=== PATIENT | female | born 1945 | race Caucasian/White ===

== ENCOUNTER 2018-01-13 09:32 | Observation (INO) ==
[2018-01-13] MEDS ORDERED: ACETAMINOPHEN 325 MG TABLET PO ONE (09:57)
[2018-01-13] MEDS ORDERED: ASPIRIN CHEW 81 MG TABLET PO STA (09:57)
[2018-01-13] MEDS ORDERED: NITROGLYCERIN SL 0.4 MG TABLET SL STA (09:57)
[2018-01-13] MEDS ORDERED: ASPIRIN EC 325 MG TABLET PO STA (10:08)
[2018-01-13 10:16] LABS: Basophils # 0.1 10*3/uL (0.0-0.2); Basophils % 0.4 % (0.0-0.8); Eosinophils # 0.7 10*3/uL (0.0-0.87); Eosinophils % 6.3 % (0.00-10.9); Hematocrit 40.9 VOL% (35.7-47.0); Immature Granulocytes % 0.6 %; Immature Granulocytes Absolute 0.07 #; Lymphocytes # 1.7 10*3/uL (1.4-4.0); Lymphocytes % 14.6 % (21.3-54.2); Mean Corpuscular HGB Conc 34.2 GM/DL (32-36); Mean Corpuscular Hemoglobin 29 PG (27-34); Mean Corpuscular Volume 85.7 FL (87-102); Mean Platelet Volume 11.3 FL (9.6-12.0); Monocytes % 8.7 % (1.7-12.7); Neutrophils # 8.2 10*3/uL (1.4-7.4); Neutrophils % 69.4 % (38.7-73.9); Platelet Count 295 T/CUMM (130-400); Red Blood Count 4.77 MC/CUMM (3.8-5.5); Red Cell Distribution Width 13.4 % (9.3-17.3); White Blood Count 11.8 T/CUMM (4-12)
[2018-01-13 10:30] LABS: PT Patient Result 10.3 SECS; Partial Thromboplastin Time 30.6 SECS (0-40)
[2018-01-13 10:44] LABS: Albumin 3.9 G/DL (3.4-5.0); Bilirubin,Total 0.5 MG/DL (0.2-1.0); Calcium 9.5 MG/DL (8.5-10.1); Osmolality,Calculated 278.5 MOS/KG (273-304)
[2018-01-13 11:13] LABS: Apearance,Urine CLEAR (Clear); Bilirubin,Urine Negative (Negative); Blood, Urine Moderate mg/dL (Negative); Glucose,Urine (UA) Negative (Negative); Ketones,Urine Negative (Negative); Mucus,Urine Occasional /LPF (Occasional); Nitrite,Urine Negative (Negative); Protein,Urine Negative; RBC,Urine 3 /HPF (0-4); Squamous Epithelial Cell,Urine Occasional /HPF (0-10); Urine Color Yellow (Yellow); Urine Specific Gravity 1.011 (1.001-1.035); Urine Urobilinogen < 2.0 EU/DL (0.2-1.0); WBC,Urine 3 /HPF (0-6)
[2018-01-13] MEDS ORDERED: MAGNESIUM SULF RIDER 2 GM in PREMIX 1 EACH IV PRN ×2 (12:32→12:43)
[2018-01-13] MEDS ORDERED: ALUM/MAG/SIMETH/LIDO VISC 1:1 30 ML BOTTLE PO PRN (12:32)
[2018-01-13] MEDS ORDERED: ONDANSETRON 4 MG/2 ML VIAL IV PRN (12:32)
[2018-01-13] MEDS ORDERED: MAGNESIUM SULF RIDER 4 GM in PREMIX 1 EACH IV PRN ×2 (12:32→12:43)
[2018-01-13] MEDS ORDERED: POTASSIUM CHLORIDE RIDER 10 MEQ in PREMIX 1 EACH IV PRN (12:43)
[2018-01-13 13:11] LABS: Risk Ratio 6.16; VLDL CHOLESTEROL 64.8 MG/DL
[2018-01-13] MEDS: HEPARIN 5,000 UNIT/1 ML VIAL SUBCUT SCH ×2 (14:03→21:59)
[2018-01-13] MEDS: hydroCHLOROthiazide 25 MG TABLET PO SCH (14:03)
[2018-01-13] MEDS: VALSARTAN 160 MG TABLET PO SCH ×2 (14:03→21:58)
[2018-01-13] MEDS: ACETAMINOPHEN 325 MG TABLET PO SCH ×2 (14:05→21:58)
[2018-01-13] MEDS: POTASSIUM CHLORIDE 20 MEQ/15 ML UDCUP PER TUBE PRN ×4 (14:50→21:59)
[2018-01-13] MEDS ORDERED: KETOROLAC 30 MG/1 ML VIAL IV ONE (15:19)
[2018-01-13] MEDS: LOVASTATIN 20 MG TABLET PO SCH (16:50)
[2018-01-13] MEDS: CARVEDILOL 3.125 MG TABLET PO SCH (21:59)
[2018-01-13] MEDS: ANASTROZOLE 1 MG TABLET PO SCH (22:09)
[2018-01-14 04:26] LABS: Basophils # 0.1 10*3/uL (0.0-0.2); Basophils % 0.7 % (0.0-0.8); Eosinophils # 0.9 10*3/uL (0.0-0.87); Eosinophils % 9.4 % (0.00-10.9); Hematocrit 37.1 VOL% (35.7-47.0); Hemoglobin 12.8 GM/DL (12.0-16.0); Immature Granulocytes % 0.3 %; Immature Granulocytes Absolute 0.03 #; Lymphocytes % 21.3 % (21.3-54.2); Mean Corpuscular HGB Conc 34.5 GM/DL (32-36); Mean Corpuscular Hemoglobin 30 PG (27-34); Mean Corpuscular Volume 85.7 FL (87-102); Mean Platelet Volume 11.4 FL (9.6-12.0); Monocytes % 10.4 % (1.7-12.7); Neutrophils # 5.5 10*3/uL (1.4-7.4); Neutrophils % 57.9 % (38.7-73.9); Platelet Count 260 T/CUMM (130-400); Red Blood Count 4.33 MC/CUMM (3.8-5.5); Red Cell Distribution Width 13.6 % (9.3-17.3); White Blood Count 9.5 T/CUMM (4-12)
[2018-01-14 05:04] LABS: Albumin 3.4 G/DL (3.4-5.0); Bilirubin,Total 0.7 MG/DL (0.2-1.0); Calcium 9.4 MG/DL (8.5-10.1); Osmolality,Calculated 284.3 MOS/KG (273-304); Total Protein 6.8 G/DL (6.4-8.3)
[2018-01-14] MEDS: HEPARIN 5,000 UNIT/1 ML VIAL SUBCUT SCH ×3 (07:33→20:11)
[2018-01-14] MEDS: PANTOPRAZOLE 40 MG TABLET PO SCH (08:41)
[2018-01-14] MEDS: hydroCHLOROthiazide 25 MG TABLET PO SCH (08:41)
[2018-01-14] MEDS: VALSARTAN 160 MG TABLET PO SCH ×2 (08:41→20:11)
[2018-01-14] MEDS: ACETAMINOPHEN 325 MG TABLET PO SCH ×2 (08:42→14:59)
[2018-01-14] MEDS: CARVEDILOL 3.125 MG TABLET PO SCH ×2 (08:42→20:11)
[2018-01-14] MEDS: MELOXICAM 7.5 MG TABLET PO SCH (08:43)
[2018-01-14] MEDS ORDERED: KETOROLAC 15 MG/1 ML VIAL IV PRN (10:15)
[2018-01-14] MEDS: LOVASTATIN 20 MG TABLET PO SCH (16:52)
[2018-01-14] MEDS: ANASTROZOLE 1 MG TABLET PO SCH (20:11)
[2018-01-15] MEDS: ACETAMINOPHEN 325 MG TABLET PO SCH ×3 (01:17→14:00)
[2018-01-15] MEDS: HEPARIN 5,000 UNIT/1 ML VIAL SUBCUT SCH ×2 (04:23→13:57)
[2018-01-15 04:26] LABS: Basophils # 0.1 10*3/uL (0.0-0.2); Basophils % 0.7 % (0.0-0.8); Eosinophils # 1.2 10*3/uL (0.0-0.87); Eosinophils % 10.7 % (0.00-10.9); Hematocrit 36.2 VOL% (35.7-47.0); Hemoglobin 12.4 GM/DL (12.0-16.0); Immature Granulocytes % 1.1 %; Immature Granulocytes Absolute 0.12 #; Lymphocytes # 2.6 10*3/uL (1.4-4.0); Lymphocytes % 24.2 % (21.3-54.2); Mean Corpuscular HGB Conc 34.3 GM/DL (32-36); Mean Corpuscular Hemoglobin 29 PG (27-34); Mean Corpuscular Volume 85.6 FL (87-102); Mean Platelet Volume 11.7 FL (9.6-12.0); Monocytes % 9.4 % (1.7-12.7); Neutrophils # 5.9 10*3/uL (1.4-7.4); Neutrophils % 53.9 % (38.7-73.9); Platelet Count 265 T/CUMM (130-400); Red Blood Count 4.23 MC/CUMM (3.8-5.5); Red Cell Distribution Width 13.8 % (9.3-17.3); White Blood Count 10.9 T/CUMM (4-12)
[2018-01-15 04:50] LABS: Albumin 3.3 G/DL (3.4-5.0); Bilirubin,Total 0.5 MG/DL (0.2-1.0); Calcium 9.1 MG/DL (8.5-10.1); Osmolality,Calculated 280.5 MOS/KG (273-304); Potassium 3.5 MMOL/L (3.5-5.1); Total Protein 6.8 G/DL (6.4-8.3)
[2018-01-15] MEDS ORDERED: REGADENOSON 0.4 MG/5 ML SYRINGE IV ONE (08:26)
[2018-01-15] MEDS: VALSARTAN 160 MG TABLET PO SCH (09:46)
[2018-01-15] MEDS: hydroCHLOROthiazide 25 MG TABLET PO SCH (09:47)
[2018-01-15] MEDS: PANTOPRAZOLE 40 MG TABLET PO SCH (09:47)
[2018-01-15] MEDS: CARVEDILOL 3.125 MG TABLET PO SCH (09:47)
[2018-01-15] MEDS: MELOXICAM 7.5 MG TABLET PO SCH (09:47)
[2018-01-15] MEDS: LOVASTATIN 20 MG TABLET PO SCH (16:25)
[2018-01-15 16:53] VITALS: BP 126/61
== END 2018-01-15 17:00 | disposition home or self-care (01) ==
LOC: N.EDINP 09:32 → N.ED 09:32 → SUATTDRO 12:24 → N.TELEN 13:34
PROVIDERS: ADMIT Internal Medicine Geriatric Medicine; ATTEND Internal Medicine